=== PATIENT | female | born 1970 | race Asian ===

== ENCOUNTER 2024-12-27 14:42 | Emergency (ER) | payer MEDICAID ==
[~2024-12-27] VITALS: Ht 154.9 cm; Wt 66.0 kg
[2024-12-27 14:49] VITALS: O2SAT 100
[2024-12-27] MEDS: KETOROLAC 15MG/ML VIAL IV ONE (15:38)
[2024-12-27 16:03] LABS: BASOPHILS % 0.4 % (0.0-2.0); EOSINOPHILS % 0.2 % (0.0-5.0); HEMATOCRIT. 37.7 % (36.0-48.0); HEMOGLOBIN. 12.8 g/dL (12.0-16.0); LYMPHOCYTES % 21.7 % (20.0-50.0); MONOCYTES % 9.2 % (2.0-8.0); NEUTROPHILS % 68.5 % (40.0-76.0); RED BLOOD CELL COUNT 4.24 mill/uL (4.2-5.4); RED CELL DISTRIBUTION WIDTH 12.8 % (11.6-14.6)
[2024-12-27 16:19] LABS: CREATININE 0.8 mg/dL (0.6-1.0); UREA NITROGEN BLOOD 9 mg/dL (9-23)
[2024-12-27 16:20] LABS: TROPONIN I HIGH SENSITIVITY < 4 ng/L (3.0-34)
[2024-12-27 16:21] LABS: ASPARTATE AMINOTRANSFERASE 39 IU/L (<34); BILIRUBIN DIRECT 0.4 mg/dL (<=3.0); BILIRUBIN TOTAL 0.9 mg/dL (0.1-1.0); PROTEIN TOTAL 8.1 g/dL (6.0-8.3)
[2024-12-27 16:25] LABS: MEAN PLATELET VOLUME 9.7 fl (7.4-10.4); PLATELET 256 x1000/uL (130-400)
[2024-12-27 16:36] LABS: BG DEOXYHEMOGLOBIN 10.4 % (0.0-5.0)
[2024-12-27] MEDS: SODIUM CHLORIDE 0.9% 1,000 ML IV ONE (17:04)
[2024-12-27] MEDS: CEFTRIAXONE 1GM/50ML 50 ML IV SCH (17:04)
[2024-12-27] MEDS: AZITHROMYCIN 500MG/250ML 250 ML IV SCH (17:05)
[2024-12-27 17:30] LABS: INR 1.0
[2024-12-27 18:28] LABS: TROPONIN I HIGH SENSITIVITY < 4 ng/L (3.0-34)
[2024-12-27 21:16] VITALS: BP 131/83; PULSE 74; RESP 17; TEMP 37; O2SAT 98
[2024-12-27] MEDS ORDERED: IOHEXOL-300 100 ML BOTTLE ONE (23:25)
== END 2024-12-27 22:19 | disposition short-term general hospital (02) ==
LOC: ER 14:42 → EDBEDREQ 20:43 → EDBEDREQTM 20:43 → ER 22:19
DX: R06.02 Shortness of breath (principal); R07.89 Other chest pain; R05.9 Cough, unspecified; I10 Essential (primary) hypertension; Z79.899 Other long term (current) drug therapy
CPT/HCPCS: 99291; 74174; 96365; 71275; 96366; 71045; 96375; 80076; 80048; 83880; 83605; 83690; 85025; 85610; 87040; 84484; 84145; 82375; 82803; 93005; 96368; 36415; J1885; Q9967; J0456; J0696; J7030